=== PATIENT | female | born 1980 ===

== ENCOUNTER → 2020-02-13 | Outpatient (CLI) | payer OTHER ==
--- NOTE | 2020-02-13 09:05 | US ---
EXAMINATION TYPE: US pelvic complete DATE OF EXAM: 02/13/2020 COMPARISON: NONE CLINICAL HISTORY: 39-year-old female Z97.5 IUD placement , R10.2 Pelvic pain, N92.1. IUD placement TECHNIQUE: Transabdominal (TA FINDINGS: EXAM MEASUREMENTS: Uterus: 8.1 x 4.2 x 5.6 cm Endometrial Stripe: .3 cm Right Ovary: 3.1 x 1.7 x 2.9 cm Left Ovary: 2.3 x 1.2 x 2.2 cm 1. Uterus: Anteverted, wnl 2. Endometrium: wnl. An IUD is appropriately situated along the uterine cavity. 3. Right Ovary: 1.2 cm dominant follicle or functional cyst. 4. Left Ovary: wnl 5. Bilateral Adnexa: wnl 6. Posterior cul-de-sac: wnl IMPRESSION: IUD appropriately situated along the uterine cavity. No specific abnormality seen.
== END | disposition home or self-care (01) ==
LOC: RADUSWWP 07:50
PROVIDERS: ATTEND Obstetrics & Gynecology
DX: R10.2 Pelvic and perineal pain (principal); N92.1 Excessive and frequent menstruation with irregular cycle; Z97.5 Presence of (intrauterine) contraceptive device
CPT/HCPCS: 76856